=== PATIENT | male | born 1965 | race African-American/Black ===

== ENCOUNTER 2018-03-26 15:59 | Inpatient (IN) | payer MEDICAID ==
[~2018-03-26] VITALS: Ht 175.3 cm; Wt 81.2 kg
[~2018-03-26 15:59] MED LIST: ABIL10 PO; BENZ1TAB7 GT
[2018-03-26 19:20] LABS: CLARITY URINE CLEAR (CLEAR); COLOR URINE YELLOW (YELLOW); KETONES URINE NEGATIVE (NEGATIVE); LEUKOCYTE ESTERASE URINE NEGATIVE (NEGATIVE); NITRITE URINE NEGATIVE (NEGATIVE); OCCULT BLOOD URINE NEGATIVE (NEGATIVE); PH URINE 5.5 (4.5-8.0); PROTEIN URINE NEGATIVE (NEGATIVE); SPECIFIC GRAVITY URINE 1.007 (1.005-1.030); UROBILINOGEN URINE 0.2 E.U./dL (0.2-1.0)
[2018-03-26 20:37] LABS: BASOPHILS % 1.3 % (0.0-2.0); HEMATOCRIT. 40.7 % (42.0-52.0); HEMOGLOBIN. 13.3 g/dL (14.0-18.0); LYMPHOCYTES % 29.1 % (20.0-50.0); MEAN CORPUSCULAR HEMOGLOBIN 28.4 pg (28.0-32.0); MEAN PLATELET VOLUME 8.9 fl (7.4-10.4); MONOCYTES % 6.8 % (2.0-8.0); NEUTROPHILS % 59.8 % (40.0-76.0); PLATELET 186 x1000/uL (130-400); RED BLOOD CELL COUNT 4.68 mill/uL (4.7-6.1); RED CELL DISTRIBUTION WIDTH 15.4 % (11.6-14.6)
[2018-03-26 20:44] LABS: INR 1.1
[2018-03-26 20:47] LABS: CHLORIDE 106 mEq/L (98-107)
[2018-03-26] MEDS ORDERED: SODIUM CHLORIDE 0.9% 1,000 ML IV ONE (20:59)
[2018-03-26] MEDS ORDERED: ONDANSETRON HCL 4MG/2ML INJ IV STA (20:59)
[2018-03-26 23:00] VITALS: BP 152/85
[2018-03-26] MEDS ORDERED: LORAZEPAM 2MG/ML CPJ IV PRN (23:30)
[2018-03-26] MEDS ORDERED: DEXTROSE 50% WATER 50ML SYRINGE IV PRN (23:30)
[2018-03-26] MEDS ORDERED: CLONIDINE 0.1MG TABLET PO PRN (23:30)
[2018-03-26] MEDS ORDERED: ONDANSETRON HCL 4MG/2ML INJ IV PRN (23:30)
[2018-03-26 23:57] VITALS: BP 152/85
[2018-03-27 00:28] LABS: INR 1.1; PARTIAL THROMBOPLASTIN TIME 28.1 sec (23.4-31.0); PROTHROMBIN TIME 11.1 sec (9.1-11.1)
[2018-03-27 00:31] LABS: ETHANOL BLOOD < 10 mg/dL
[2018-03-27 00:36] LABS: CREATINE KINASE 183 IU/L (39-308)
[2018-03-27 01:04] LABS: PHENOBARBITAL < 2.1 ug/mL (15.0-40.0)
[2018-03-27 01:05] LABS: CARBAMAZEPINE < 0.5 ug/mL (4-12)
[2018-03-27 01:06] LABS: VALPROIC ACID < 3.0 ug/mL (50-100)
[2018-03-27] MEDS ORDERED: METF-414 PO (01:27)
[2018-03-27 04:02] VITALS: BP 128/64
[2018-03-27] MEDS: BLOOD SUGAR DIAGNOSTIC STRIP TEST SCH ×4 (06:34→21:00)
[2018-03-27 07:08] LABS: AMMONIA 27 uMol/L (<32)
[2018-03-27] MEDS: INSULIN LISPRO 100 UNITS/ML SUBCUT SCH ×4 (07:19→22:06)
[2018-03-27 07:34] LABS: BASOPHILS % 1.1 % (0.0-2.0); EOSINOPHILS % 3.5 % (0.0-5.0); HEMATOCRIT. 40.1 % (42.0-52.0); HEMOGLOBIN. 13.5 g/dL (14.0-18.0); LYMPHOCYTES % 20.1 % (20.0-50.0); MEAN CORPUSCULAR HEMOGLOBIN 28.8 pg (28.0-32.0); MEAN CORPUSCULAR VOLUME 85.9 fL (80.0-94.0); MEAN PLATELET VOLUME 8.7 fl (7.4-10.4); MONOCYTES % 6.7 % (2.0-8.0); NEUTROPHILS % 68.6 % (40.0-76.0); PLATELET 188 x1000/uL (130-400); RED BLOOD CELL COUNT 4.67 mill/uL (4.7-6.1)
[2018-03-27 07:59] LABS: CHLORIDE 107 mEq/L (98-107)
[2018-03-27 08:00] VITALS: BP 154/79
[2018-03-27] MEDS: ENOXAPARIN 40MG/0.4ML SYR SUBCUT SCH (09:09)
[2018-03-27] MEDS ORDERED: INFLUENZA VIRUS VACCINE(AFLURIA) 0.5ML SYR IM ONE (10:00)
[2018-03-27] MEDS ORDERED: RISP2 MT (10:03)
[2018-03-27] MEDS ORDERED: VALS40TA11 PO (10:03)
[2018-03-27] MEDS ORDERED: GLIP5TAB12 MT (10:03)
[2018-03-27] MEDS ORDERED: HYDR12.529 MT (10:03)
[2018-03-27] MEDS ORDERED: PIOG15TA23 MT (10:03)
[2018-03-27] MEDS: RISPERIDONE 1MG TABLET PO SCH (11:28)
[2018-03-27] MEDS: PIOGLITAZONE 15MG TABLET PO SCH (11:28)
[2018-03-27] MEDS: FOLIC ACID 1MG TABLET PO SCH (11:28)
[2018-03-27] MEDS: THIAMINE HCL 100MG TABLET PO SCH (11:28)
[2018-03-27] MEDS: LOSARTAN POTASSIUM 50 MG TABLET PO SCH (11:28)
[2018-03-27] MEDS: MULTIVITAMINS,THER W-MINERALS TABLET PO SCH (11:28)
[2018-03-27] MEDS: HYDROCHLOROTHIAZIDE 12.5MG CAPSULE PO SCH (11:29)
[2018-03-27 11:43] VITALS: BP 168/82
[2018-03-27 14:25] VITALS: BP 133/81
[2018-03-27 15:31] LABS: *AMPHETAMINES SCREEN URINE NEGATIVE (NEGATIVE); *BARBITURATES SCREEN URINE NEGATIVE (NEGATIVE); *BENZODIAZEPINES SCREEN URINE NEGATIVE (NEGATIVE); *COCAINE SCREEN URINE NEGATIVE (NEGATIVE); CANNABINOID URINE SCREEN NEGATIVE (NEGATIVE); METHADONE URINE SCREEN NEGATIVE (NEGATIVE); OPIATES URINE SCREEN NEGATIVE (NEGATIVE); PHENCYCLIDINE URINE SCREEN NEGATIVE (NEGATIVE)
[2018-03-27] MEDS ORDERED: METFORMIN HCL 500MG TABLET PO SCH (17:50)
[2018-03-27] MEDS: CARBAMAZEPINE 200MG TABLET PO SCH (22:03)
[2018-03-28] MEDS ORDERED: GLIPIZIDE 5MG TABLET PO SCH (07:20)
[2018-03-28] MEDS: BLOOD SUGAR DIAGNOSTIC STRIP TEST SCH ×2 (07:20→12:20)
[2018-03-28 08:00] VITALS: BP 149/84
[2018-03-28] MEDS: PIOGLITAZONE 15MG TABLET PO SCH (09:00)
[2018-03-28] MEDS: HYDROCHLOROTHIAZIDE 12.5MG CAPSULE PO SCH (10:48)
[2018-03-28] MEDS: LOSARTAN POTASSIUM 50 MG TABLET PO SCH (10:48)
[2018-03-28] MEDS: THIAMINE HCL 100MG TABLET PO SCH (10:48)
[2018-03-28] MEDS: MULTIVITAMINS,THER W-MINERALS TABLET PO SCH (10:48)
[2018-03-28] MEDS: RISPERIDONE 1MG TABLET PO SCH (10:49)
[2018-03-28] MEDS: CARBAMAZEPINE 200MG TABLET PO SCH (10:49)
[2018-03-28] MEDS: FOLIC ACID 1MG TABLET PO SCH (10:49)
[2018-03-28] MEDS: ENOXAPARIN 40MG/0.4ML SYR SUBCUT SCH (10:50)
[2018-03-28] MEDS: INSULIN LISPRO 100 UNITS/ML SUBCUT SCH ×2 (11:05→12:50)
[2018-03-28 12:00] VITALS: BP 129/82
[2018-03-28 16:00] VITALS: BP 115/85
[2018-03-28 16:56] VITALS: BP 120/82
== END 2018-03-28 17:30 | disposition home or self-care (01) | DRG 48 ==
LOC: ER 15:59 → 6WST 21:07 → ENRESERV 21:15
PROVIDERS: ADMIT Internal Medicine; ATTEND Internal Medicine
DX: G90.8 Other disorders of autonomic nervous system (principal); F20.9 Schizophrenia, unspecified; G40.909 Epilepsy, unspecified, not intractable, without status epilepticus; E11.9 Type 2 diabetes mellitus without complications; I44.7 Left bundle-branch block, unspecified; F17.210 Nicotine dependence, cigarettes, uncomplicated; I10 Essential (primary) hypertension; I25.10 Atherosclerotic heart disease of native coronary artery without angina pectoris; Z91.14 Patient's other noncompliance with medication regimen; Z79.899 Other long term (current) drug therapy
CPT/HCPCS: 36415; 70551; 80048; 80156; 80165; 80184; 80185; 80305; 82140; 82550; 82962; 84443; 84484; 90686; 93005; 97162; 99285; G0482; J1650; J1815; J7030

== ENCOUNTER 2018-04-13 16:22 | Emergency (ER) | payer MEDICAID ==
[~2018-04-13] VITALS: Ht 175.3 cm; Wt 82.0 kg
[~2018-04-13 16:22] MED LIST changes: -ABIL10 PO; -BENZ1TAB7 GT; +GLIP5TAB12 MT; +HYDR12.529 MT; +METF-414 PO; +PIOG15TA23 MT; +RISP2 MT; +VALS40TA11 PO
[2018-04-13 16:38] VITALS: BP 142/78
== END 2018-04-13 18:31 | disposition left against medical advice (07) ==
LOC: ER 16:22
DX: R68.89 Other general symptoms and signs (principal); Z53.21 Procedure and treatment not carried out due to patient leaving prior to being seen by health care provider